=== PATIENT | male | born 2000 | race Hispanic/Latino ===

== ENCOUNTER 2025-07-07 15:09 | Emergency (ER) | payer SELFPAY ==
[~2025-07-07] VITALS: Ht 177.8 cm; Wt 79.4 kg
--- NOTE | 2025-07-07 15:27 | ERN ---
ED Note History of Present Illness Stated Complaint: SEIZURE Chief Complaint: Seizure Time Seen by MD: 15:11 Time Seen by Midlevel: 15:15 Dictation: Mr. Noel is a 24-year-old male with history of depression/suicidal ideation who was transported via EMS to the emergency department this afternoon for evaluation of possible seizure. Patient is at an inpatient psychiatric facility ([facility]) and states that he has been experiencing sharp pains to his head and seizures , anxiety, and chest pressure. He states he is eating and drinking well. He states he was evaluated at [facility] and that they just gave him some IV fluids and sent him back. He Denies fever, chills, shortness of breath, cough, palpitations, edema, abdominal pain, nausea, vomiting, hematemesis, constipation, diarrhea, melena, hematochezia, dysuria, dysarthria, dysphagia, difficulty speaking, difficulty talking, dizziness, or focal weakness/paresthesia. He states he was hospitalized because he had suicidal ideation. Denies suicidal or homicidal ideation at this time. He denies auditory or visual hallucinations. UPDATE: Spoke with staff at [facility]. They state that he has been complaining of chest pains since 07/03 and has had multiple EKGs/serial troponins all which are unremarkable. Staff states that he was stiff and shaking; anxious but alert and oriented. They state that he has been very anxious. EMS personnel report that he was alert and awake on their arrival and did not appear to be post ictal. Allergies: Coded Allergies: No Known Drug Allergies (Unverified Allergy, Unknown, 07/07/25) Past Medical History Past Medical History: No Pertinent History Surgical History: None PSYCH History: anxiety, depression Family History: DM RN Note Reviewed/Agreed w/PFSH: Yes Review of System Dictation REVIEW OF SYSTEMS: CONSTITUTIONAL: Patient denies fevers, chills, sweats and weight changes. EYES: Patient denies any visual symptoms. EARS, NOSE, AND THROAT: No difficulties with hearing. No symptoms of rhinitis or sore throat. CARDIOVASCULAR: Patient denies palpitations, orthopnea and paroxysmal nocturnal dyspnea. Reports intermittent sharp chest pain. RESPIRATORY: No dyspnea on exertion, no wheezing or cough. GI: No nausea, vomiting, diarrhea, constipation, abdominal pain, hematochezia or melena. : No urinary hesitancy or dribbling. No nocturia or urinary frequency. No abnormal urethral discharge. MUSCULOSKELETAL: No myalgias or arthralgias. NEUROLOGIC: Patient denies numbness, tingling or weakness. Denies focal weakness. Denies difficulty swallowing or speaking. Reports sharp pains to his head. Reports seizures for the last three weeks. PSYCHIATRIC: Patient denies problems with mood disturbance. No problems with anxiety. ENDOCRINE: No excessive urination or excessive thirst. DERMATOLOGIC: Patient denies any rashes or skin changes. PSYCH: Denies intent to harm self or others. Denies auditory or visual hallucinations. Initial Vital Sign VS Vital Signs Date Time Temp Pulse Resp B/P (MAP) Pulse Ox O2 Delivery O2 Flow Rate FiO2 07/07/25 15:11 98.1 78 16 129/80 98 Room Air 0 07/07/25 17:08 21 Physical Exam Dictation Vital signs: Reviewed. Afebrile. Constitutional: No acute distress. Non-toxic appearing. Calm/cooperative. [facility] staff member at bedside. Head/Face: Normocephalic, atraumatic. Eyes: Periorbital areas with no swelling, redness, or edema. Lids and lashes are normal. Conjunctival injection is absent. Sclera anicteric. Pupils equal, round, reactive to light. ENT: Pinnas intact and no signs of trauma or erythema. Ear canals clear and no discharge. TMs no erythema. No nasal discharge or bleeding noted. Oropharynx with no exudate, redness, swelling, masses, exudates, or evidence of obstruction. Uvula midline. Mucous membranes moist. Neck: Trachea midline, no masses palpated, and no cervical lymphadenopathy. No swelling. Supple, full range of motion. Chest/Axilla: No tenderness, no crepitus, no paradoxical movement, no retractions. Cardiovascular: Regular rate, regular rhythm, no murmur, no gallops. Symmetric pulses. No peripheral edema. Normotensive. Respiratory: Respirations even and unlabored. Lung sounds clear; no wheezes, rales or rhonchi. Room air SpO2 98% Gastrointestinal: Inspection is normal. No distention is appreciated. Bowel sounds are normal. No mass or organomegaly . There is no tenderness. No rebound. No rigidity. No voluntary or involuntary guarding. No Romeo's sign. Neurological: Normal speech, gross motor function intact, gross sensory function intact. No focal weakness/Paresthesia. GAIL. NIHSS=0. Musculoskeletal/Extremities: All extremities have full range of motion, no pain or tenderness on palpation. Symmetric pulses. Integumentary: Intact. Skin is normal color, warm and dry. Cap refill less than 2 seconds. Results (Laboratory/Radiology) Laboratory/Radiology Laboratory Tests Test 07/07/25 15:28 07/07/25 16:09 White Blood Count 11.7 K/uL (4.8-10.8) H Red Blood Count 5.65 MIL/uL (4.50-6.20) Hemoglobin 17.3 g/dL (14.0-18.0) Hematocrit 50.7 % (42-54) Mean Corpuscular Volume 89.7 fL (79-99) Mean Corpuscular Hemoglobin 30.6 pg (27.0-33.0) Mean Corpuscular Hemoglobin Concent 34.1 g/dL (32.0-36.0) Red Cell Distribution Width 12.4 % (11.0-15.5) Platelet Count 175 K/uL (130-400) Mean Platelet Volume 12.9 fL (7.5-10.5) H Immature Granulocyte % (Auto) 0.4 % (0-1) Neutrophils (%) (Auto) 76.7 % (40.0-77.0) Lymphocytes (%) (Auto) 15.3 % (21.0-51.0) L Monocytes (%) (Auto) 6.9 % (3.0-13.0) Eosinophils (%) (Auto) 0.4 % (0.0-8.0) Basophils (%) (Auto) 0.3 % (0.0-5.0) Neutrophils # (Auto) 9.0 K/uL (1.8-7.7) H Lymphocytes # (Auto) 1.8 K/uL (1.0-4.8) Monocytes # (Auto) 0.8 K/uL (0.1-1.0) Eosinophils # (Auto) 0.05 K/uL (0.00-0.70) Basophils # (Auto) 0.04 K/uL (0.00-0.20) Absolute Immature Granulocyte (auto 0.05 K/uL (0-1) Nucleated Red Blood Cells 0.0 % (0.0-0.19) Sodium Level 138 mmol/L (136-145) Potassium Level 3.5 mmol/L (3.5-5.1) Chloride Level 100 mmol/L (101-111) L Carbon Dioxide Level 27 mmol/L (21-32) Blood Urea Nitrogen 18 mg/dL (7-18) Creatinine 0.9 mg/dL (0.5-1.3) Glomerular Filtration Rate Calc 123 mL/min (>90) Random Glucose 93 mg/dL (70-105) Total Calcium 9.3 mg/dL (8.5-10.1) Total Bilirubin 0.5 mg/dL (0.2-1.0) Direct Bilirubin 0.1 mg/dL (0.0-0.3) Aspartate Amino Transf (AST/SGOT) 12 U/L (10-37) Alanine Aminotransferase (ALT/SGPT) 16 U/L (12-78) Alkaline Phosphatase 80 U/L (50-136) Troponin I High Sensitivity 43 ng/L (4-75) Total Protein 8.1 g/dL (6.0-8.3) Albumin 4.5 g/dL (3.5-5.0) Urine Color YELLOW (YELLOW) Urine Appearance CLEAR (CLEAR) Urine pH 6.0 (5.0-8.0) Urine Specific [place] 1.036 (1.001-1.031) Urine Protein 10 mg/dL (NEGATIVE) H Urine Glucose (UA) NEGATIVE mg/dL (NEGATIVE) Urine Ketones 20 mg/dL (NEGATIVE) H Urine Occult Blood SMALL (NEGATIVE) H Urine Nitrate NEGATIVE (NEGATIVE) Urine Bilirubin NEGATIVE mg/dL (NEGATIVE) Urine Urobilinogen 2.0 mg/dL (0.2-1.0) H Urine Leukocyte Esterase 25 Mor/uL (NEGATIVE) H Urine RBC 0-1 /HPF (0-1) Urine WBC 0-1 /HPF (0-1) Urine Squamous Epithelial Cells 0-2 /HPF (0-2) Urine Bacteria Rare /HPF (None Seen) Labs Reviewed?: Yes EKG Comment: EKG Interpretation: Time Reviewed: 1546 Ventricular rate: 69 bpm MO Interval: 115 ms QRS duration: 92 ms Clinical impression: Sinus rhythm with no acute ST-T changes EKG Reviewed and interpreted by Dr. Angle Vasques CT Scan Comment: PATIENT: LUZMA NOEL MR#: [id number] : 2000 SEX: M AGE: 24 LOCATION: [facility] ORDER 23 STATUS: REG ER REPORT#: [id number] SERVICE 22 REASON: headache, possible seizure ORDERING PHYSICIAN: BROOKLYNN BORJAS PROCEDURE: HEAD WO - CT HEAD/BRAIN W/O CONTRAST EXAM: CT Head Without IV contrast. CLINICAL HISTORY: headache, possible seizure TECHNIQUE: Axial computed tomography images of the head/brain without intravenous contrast. COMPARISON: None provided. FINDINGS: BRAIN: No evidence of acute hemorrhage. No mass lesion. No CT evidence for acute territorial infarct. No midline shift or extra-axial collections. VENTRICLES: No hydrocephalus. ORBITS: The orbits are unremarkable. SINUSES AND MASTOIDS: The paranasal sinuses and mastoid air cells are clear. BONES: No fracture. SOFT TISSUES: Unremarkable. IMPRESSION: No acute intracranial abnormality. /[place] DICTATED BY: TRINO BELLA DO DATE: 07/07/251709 ELECTRONICALLY SIGNED BY: TRINO BELLA DO DATE: 07/07/251709 ED Course ED Course Orders Procedure Category Date Status Time Cbc With Differential LAB 07/07/25 Complete 15:23 Basic Metabolic Panel LAB 07/07/25 Complete 15:23 Hepatic Function Panel LAB 07/07/25 Complete 15:23 Urinalysis Profile LAB 07/07/25 Complete 15:23 Troponin I High LAB 07/07/25 Complete Sensitivity 15:23 12 Lead Ekg Tracing- EKG 07/07/25 Complete Technical 15:23 Ct Head/Brain W/O CT 07/07/25 Resulted Contrast 15:23 0.9%Nacl 1000ml (Ns PHA 07/07/25 Complete 1000ml) 17:00 Current Medications Medications (Trade) Dose Ordered Sig/Blanche Route PRN Reason Start Time Stop Time Status Last Admin Dose Admin Sodium Chloride 1,000 ml @ 0 mls/hr ONCE ONCE IV 07/07/25 17:00 07/07/25 17:01 DC 07/07/25 16:49 Vital Signs Date Time Temp Pulse Resp B/P (MAP) Pulse Ox O2 Delivery O2 Flow Rate FiO2 07/07/25 17:08 97.9 79 14 136/79 99 Room Air* 0 21 07/07/25 15:11 98.1 78 16 129/80 98 Room Air 0 In the ED patient is alert oriented cooperative and normal neurological exam and no focal deficits. There was no evidence of actual seizure activity-no tongue biting, no incontinence no postictal confusion and no witnessed seizure by staff or EMS. CT head performed today is unremarkable showing no acute intracranial abnormality (no hemorrhage, mass effect, stroke, or hydrocephalus). Vital signs are stable; afebrile and normotensive. Twelve lead EKG reflects a sinus rhythm with no ischemic changes. Troponin is negative UA shows ketones, protein, b lood, and leukocyte esterase but no urinary symptoms. There was no fever, and is most consistent with dehydration and not infection. No antibiotics indicated. Labs notable for mild leukocytosis at 11.7 but otherwise reassuring. Patient was given 1 L of NS with improvement in hydration. Mild ketonuria likely due to limited intake and anxiety. There is no evidence of seizures o rdered cardiac event, infection, intracranial pathology, or electrolyte abnormality. Based on ED evaluation, prior records, facility report, and current stable exam, patient is medically stable to return to the inpatient psychiatric facility. Medical Decision Making MDM MDM: Differential diagnosis: Cardiac chest pain/ACS, intracranial hemorrhage, intracranial mass, seizure, manifestation of anxiety disorder Rationale: Tests considered and ordered secondary to shared decision making include: Lab, CT Previous outside records reviewed: Old ER visits. Risk of complication and/or morbidity or mortality of patient management: None Medications-Per medication reconciliation Need for hospitalization: Patient does not meet criteria for hospitalization. Need for emergency major/minor surgery: No There are no social concerns with this patient. Prescription drug management: NA Prescriptions will include symptomatic care Patient's prior external medical records from other ER visits were reviewed by me as indicated. Prior testing and results from previous visits were reviewed. Prior tests were taken into account with medical decision making and resource utilization, independent historian/historians were used to obtain complete medical history. I independently interpreted the test that were performed, results were reviewed by me and considered findings on radiology if ordered. Medical management and examination interpretation discussions were had by me with other qualified healthcare professionals as indicated for the patient's care. DX & DISP Disposition: Discharge Departure Impression: Primary Impression: Anxiety disorder Additional Impressions: Seizure-like activity, Seizure-like activity-not true seizure, Ketonuria, Mild dehydration, Non-cardiac chest pain Condition: Stable Assign Patient to: RETURN TO [facility] Additional Instructions: You were evaluated in the emergency department today for shaking episodes, chest discomfort, and anxiety. Your medical workup was reassuring and showed no acute medical problems that require hospital admission. You are medically stable. Your symptoms today are most consistent with anxiety and do not represent a seizure or a dangerous medical condition. Your psychiatric team at your facility we will continue to manage your ongoing mental health care. You may return to Behavioral program at [facility]. Continue all medications as prescribed by the psychiatric team. Drink plenty of fluids over the next 24 hours to help with dehydration. Rest as needed. Notify staff if symptoms worsened. Return to the ER notify your behavioral health staff right away if you develop: Chest pain that is severe or different from today, trouble breathing, confusion, fainting, or repeated episodes of unresponsiveness. A witnessed seizure, high fever, vomiting, or signs of infection. ATTESTATION BY PHYSICIAN I PERFORMED THE SUBSTANTIVE PORTION OF THE VISIT. I HAVE REVIEWED AND KASSANDRA BUTLER MADE AND APPROVED THE MANAGEMENT PLAN THAT IS DOCUMENTED IN THE NOTE BY MYSELF FOR THE A PP. BROOKLYNN BORJAS Jul 07, 2025 15:27 ANGLE VASQUES MD Jul 07, 2025 18:16
[2025-07-07 15:35] LABS: IMMATURE GRANULOCYTE ABSOLUTE 0.05 K/uL (0-1); NUCLEATED RED BLOOD CELLS 0.0 % (0.0-0.19); PLATELET COUNT (AUTO) 175 K/uL (130-400); RED BLOOD CELL COUNT(AUTO) 5.65 MIL/uL (4.50-6.20); RED CELL DISTRIBUTION WIDTH 12.4 % (11.0-15.5); WHITE BLOOD COUNT (AUTO) 11.7 K/uL (4.8-10.8)
--- NOTE | 2025-07-07 15:39 | NUR ---
SPOKE WITH NURSE KEMAR TOMPKINS. STATES NO LOC, STIFF LIKE MUSCLE ACTIVITY. PATIENT AWAKE AND ALERT WITH STABLE VITAL SIGNS S/P MUSCULAR (SHAKING) LIKE ACTIVITY. STATES PATIENT HAS BEEN C/O CHEST PAIN WITH FEELINGS OF IMPENDING HEART ATTACK SINCE ADMISSION TO [facility] 07/03. HAS HAD SERIAL EKGs TAKEN WITH NORMAL REPORTS. [place] [facility] [place]PL[place] AND DISCHARGED BACK TO [facility] WITH UNREMARKABLE FINDINGS.
[2025-07-07 15:46] LABS: CREATININE 0.9 mg/dL (0.5-1.3); GLOMERULAR FILTR. RATE CALC 123.0 mL/min (>90); GLUCOSE,RANDOM 93.0 mg/dL (70-105); SODIUM SERUM 138.0 mmol/L (136-145); UREA NITROGEN, BLOOD 18.0 mg/dL (7-18)
[2025-07-07 15:52] LABS: ASPARTATE AMINOTRANSFERASE 12.0 U/L (10-37); TOTAL PROTEIN, SERUM 8.1 g/dL (6.0-8.3)
--- NOTE | 2025-07-07 15:56 | EKG ---
[facility] Test Date: 2025-07-07 Test Time: 15:47:49 Pat Name: LUZMA KURTZ Department: [facility] Room: Gender: M Decorating Consultant: [id number] : 2000 Requested By: BROOKLYNN BORJAS Order Number: [id number] Reading MD: Gianna Cain Measurements Intervals [place] Rate: 69 P: -26 ND: 115 QRS: 65 QRSD: 92 T: 94 QT: 380 QTc: 409 Interpretive Statements Sinus arrhythmia ST elev, probable normal early repol pattern No previous ECG available for comparison Electronically Signed On 07-08-2025 13:11:56 STORE DETECTIVE by Gianna Cain Please click the below link to view image of tracing.
--- NOTE | 2025-07-07 16:11 | HMCIMG ---
EXAM: CT Head Without IV contrast. CLINICAL HISTORY: headache, possible seizure TECHNIQUE: Axial computed tomography images of the head/brain without intravenous contrast. COMPARISON: None provided. FINDINGS: BRAIN: No evidence of acute hemorrhage. No mass lesion. No CT evidence for acute territorial infarct. No midline shift or extra-axial collections. VENTRICLES: No hydrocephalus. ORBITS: The orbits are unremarkable. SINUSES AND MASTOIDS: The paranasal sinuses and mastoid air cells are clear. BONES: No fracture. SOFT TISSUES: Unremarkable. IMPRESSION: No acute intracranial abnormality. /[place]
[2025-07-07 16:29] LABS: APPEARANCE,URINE CLEAR (CLEAR); GLUCOSE, URINE (UA) NEGATIVE (NEGATIVE); LEUKOCYTE ESTERASE ,URINE 25 Leu/uL (NEGATIVE); NITRATE,URINE NEGATIVE (NEGATIVE); OCCULT BLOOD,URINE SMALL (NEGATIVE)
[2025-07-07 16:32] LABS: ADD UA MICROSCOPIC YES
[2025-07-07 16:42] LABS: SQUAMOUS EPITHELIAL CELL,UR 0-2 /HPF (0-2)
[2025-07-07] MEDS: 0.9%NACL 1000ML 1,000 ML IV ONE (16:49)
[2025-07-07 17:08] VITALS: BP 136/79; PULSE 79; RESP 14; TEMP 97.9; O2SAT 99
--- NOTE | 2025-07-07 17:10 | NUR ---
PATIENT REPORT GIVEN TO NURSE REINOSO WITH [facility]. DEPART TIME 1714
== END 2025-07-07 17:01 | disposition home or self-care (01) ==
LOC: EDH 15:09
DX: F41.9 Anxiety disorder, unspecified (principal); E86.0 Dehydration; R82.4 Acetonuria; R51.9 Headache, unspecified
CPT/HCPCS: 99284; 70450; 80076; 84484; 80048; 85025; 81001; 36415; 93005; J7030